=== PATIENT | female | born 1990 | race Caucasian/White ===

== ENCOUNTER 2017-01-22 21:49 | Emergency (ER) | payer OTHER, SELFPAY ==
[~2017-01-22] VITALS: Ht 162.6 cm; Wt 63.5 kg
[~2017-01-22 21:49] MED LIST: CYCLOBENZAPRINE10 MG PO; MELOXICAM15 MG PO; NORCO 5-325 TA1 EACH PO; ORTHO TRI-CYCL1 EACH PO; PERCOCET 5-3251 EACH PO; PREDNISONE20 MG PO
[2017-01-22] MEDS ORDERED: BACTRIM 400-801 EACH PO (22:07)
[2017-01-22] MEDS ORDERED: FLAGYL500 MG PO (22:09)
--- NOTE | 2017-01-23 22:35 | EKG ---
[facility] [address] [facility] [place], [place] [address] Signed Sinus tachycardia Rightward axis Septal infarct , age undetermined ST \T\ T wave abnormality, consider inferior ischemia Abnormal ECG No previous ECGs available Confirmed by ZHANE DE LA TORRE MD ([id number]) on 01/23/2017 10:35:06 PM Electronically Signed By: ZHANE DE LA TORRE MD 01/23/17 2235 PATIENT NAME: EZEQUIELYARA E Electrocardiogram DATE OF : 88 PHYSICIAN: ZHANE DE LA TORRE MD REPORT #: [id number] REPORT IS CONFIDENTIAL AND NOT TO BE RELEASED WITHOUT AUTHORIZATION
== END 2017-01-22 23:21 | disposition home or self-care (01) ==
LOC: ED 21:49
DX: R07.89 Other chest pain (principal); T40.7X5A Adverse effect of cannabis (derivatives), initial encounter; Z79.899 Other long term (current) drug therapy
CPT/HCPCS: 70450; 71020; 80053; 84484; 84703; 85025; 85379; 93005; 93010; 99284; G0480

== ENCOUNTER 2023-01-14 10:28 | Inpatient (IN) | payer OTHER ==
[~2023-01-14] VITALS: Ht 162.6 cm; Wt 88.0 kg
--- OUTSIDE RECORDS SUMMARY | ~2023-01-14 | XMS | Continuity of Care Document ---
Demographics + + + | Address | [address] | | | [place] [address] | + + + | Preferred Language | Unknown | + + + | Marital Status | | + + + | Religion Affiliation | Unknown | + + + | Race | White | + + + | Ethnic Group | Unknown | + + + Author + + + | Author | [facility] | + + + | Organization | [facility] | + + + | Address | [address] | | | [place] [address] | + + + | Phone | | + + + Care Team Providers + + + + | Care Supervisor [facility] Name | Role | Phone | + + + + Unavailable | Unavailable | + + + + Allergies and Intolerances + + + + + | date | description | facility | type | + + + + + | (no date) | No Known Drug | [facility] | (unknown) | | | Allergies | | | + + + + + Encounters No information. Functional Status No information. Immunizations No information. Medications No information. Problems + + + + | date | description | facility | + + + + | 2022-06-07 06:55 | ENCOUNTER FOR | [facility] | | | SCREENING FOR UNCERTAIN | | | | DATES | | + + + + | 2022-06-07 06:55 | LESS THAN 8 WEEKS | [facility] | | | GESTATION OF | | + + + + | 2022-08-31 13:38 | ENCOUNTER FOR SUPRVSN OF | [facility] | | | NORMAL , SECOND | | | | TRIMESTER | | + + + + | 2022-08-31 13:38 | 19 WEEKS GESTATION OF | [facility] | | | | | + + + + | 2022-09-13 09:23 | ENCOUNTER FOR SCREENING | [facility] | | | FOR RESPIRATORY | | | | TUBERCULOSIS | | + + + + | 2022-11-01 15:07 | DECREASED MOVEMENTS, | [facility] | | | THIRD TRIMESTER, UNSP | | + + + + | 2022-11-01 15:07 | 28 WEEKS GESTATION OF | [facility] | | | | | + + + + | 2022-11-22 16:21 | UNSPECIFIED MATERNAL | [facility] | | | HYPERTENSION, UNSPECIFIED | | | | TRIMESTER | | + + + + | 2022-12-06 14:02 | DECREASED MOVEMENTS, | [facility] | | | THIRD TRIMESTER, UNSP | | + + + + | 2022-12-06 14:02 | COUGH, UNSPECIFIED | [facility] | + + + + | 2022-12-06 14:02 | 33 WEEKS GESTATION OF | [facility] | | | | | + + + + | 2022-12-31 20:15 | LOW LYING PLACENTA NOS OR | [facility] | | | WITHOUT HEMORR | | + + + + | 2022-12-31 20:15 | LOW LYING PLACENTA NOS OR | [facility] | | | WITHOUT HEMOR, THIRD | | | | TRIMESTER | | + + + + | 2022-12-31 20:15 | 34 WEEKS GESTATION OF | [facility] | | | | | + + + + | 2022-12-31 20:30 | LOW LYING PLACENTA NOS OR | [facility] | | | WITHOUT HEMORR | | + + + + | 2023-01-07 15:44 | DECREASED MOVEMENTS, | [facility] | | | THIRD TRIMESTER, UNSP | | + + + + | 2023-01-07 15:44 | 38 WEEKS GESTATION OF | [facility] | | | | | + + + + Procedures No information. Results/Labs No information. Social History No information. Vital Signs No information."
[~2023-01-14 10:28] MED LIST changes: +BACTRIM 400-801 EACH PO; +FLAGYL500 MG PO
[2023-01-14 14:04] VITALS: BP 123/75
--- NOTE | 2023-01-15 05:05 | PR ---
[facility] [address] [place], [place] [address] Signed Progress Notes IP Datetime Report Generated by BRENT: 01/15/2023 05:05 PROGRESS NOTES: [id number] Impression: Reassuring Heart Rate Other Impressions: panic attack Procedures: Sterile Vag Exam VITAL SIGNS: [id number] Vital Signs: Reviewed EXAM: [id number] Dilatation: 4.5 Effacement: 60 Station: -2 Contractions: not picking up well MEMBRANES: [id number] Comments: Pt rec'd epidural and then had hypotension requiring ephedrine. She then developed severe restlessness and then a panic attack. She was treated with IV Benadryl with slow improvement in her symptoms. Baby stable throughout and maternal VS also stable. Suspect this is reaction to the ephedrine which caused the severe restlessness which brought on the panic attack. She is improved currently. Will allow to rest for now. FETUS A: [id number] FHR Baseline: 125 Variability: Moderate 6-25bpm Accelerations: 15X15 Decelerations: None FHR Category: Category I Presentation: Vertex Comments on Fetus A: no evidence of metabolic acidosis FETUS B: [id number] Signing Physician: Brittany Freire MD Copies: ~ *Electronically Signed* 01/15/23 0505 BRITTANY FREIRE MD PATIENT NAME: YARA MOFFETT PROGRESS NOTE DATE OF : 88 PHYSICIAN: BRITTANY FREIRE MD RPT #: [id number] REPORT IS CONFIDENTIAL AND NOT TO BE RELEASED WITHOUT AUTHORIZATION
--- NOTE | 2023-01-16 08:24 | PR ---
[facility] [address] [facility] [place], [place] [address] Signed PP Progress Notes Datetime Report Generated by CPN: 01/16/2023 08:23 SUBJECTIVE: [id number] Pain: Within Normal Limits Vital Signs: [id number] Vital Signs: Reviewed; Within Normal Limits Cardiovascular: Not Done Respiratory: Not Done Abdomen/Uterus: Abnormal Lochia: Normal Vulva/Perineum: Not Done Breasts: Not Done CVA Tenderness: Not Done Extremities: Normal Incision: Not Applicable Progress: Normal Exam Comments: Fundus firm, NT @ U-1. H/H 9.4/28.1, WBC 10.9, plat 194k IMPRESSION/PLAN/PROCEDURES: [id number] Impression: Normal Progression Plan: Discharge Procedures: Rhogam Progress Notes: Doing well. She desires discharge. Signing Physician: Brittany Freire MD Copies: ~ *Electronically Signed* 01/16/23822 BRITTANY FREIRE MD PATIENT NAME: YARA MOFFETT PROGRESS NOTE DATE OF : 88 PHYSICIAN: BRITTANY FREIRE MD RPT #: [id number] REPORT IS CONFIDENTIAL AND NOT TO BE RELEASED WITHOUT AUTHORIZATION
--- NOTE | 2023-01-16 13:01 | NUR ---
PT IN BED WITH BABY. INDICATED ANTICIPATION OF DISCHARGE. TALKED OF ADJUSTMENTS FOR OTHER CHILD. OVERALL POSITIVE ATTITUDE. PRAYED.
== END 2023-01-16 14:00 | disposition home or self-care (01) | DRG 807 ==
LOC: FBC 11:40
PROVIDERS: ADMIT Obstetrics & Gynecology; ATTEND Obstetrics & Gynecology
PROC: 10E0XZZ Delivery of Products of Conception, External Approach (ICD-10-PCS; principal; 2023-01-15)
PROC: 10907ZC Drainage of Amniotic Fluid, Therapeutic from Products of Conception, Via Natural or Artificial Opening (ICD-10-PCS; 2023-01-15)
PROC: 3E0R3BZ Introduction of Anesthetic Agent into Spinal Canal, Percutaneous Approach (ICD-10-PCS; 2023-01-15)
PROC: 00HU33Z Insertion of Infusion Device into Spinal Canal, Percutaneous Approach (ICD-10-PCS; 2023-01-15)
DX: O76 Abnormality in fetal heart rate and rhythm complicating labor and delivery (principal); Z37.0 Single live birth; O99.344 Other mental disorders complicating childbirth; F41.0 Panic disorder [episodic paroxysmal anxiety]; Z3A.39 39 weeks gestation of pregnancy
CPT/HCPCS: 01960; 36415; 83030; 85027; 86850; 86900; 86901; A9270; J1200; J2210; J2590; J2790; J7121